=== PATIENT | male | born 1960 | race Caucasian/White ===

== ENCOUNTER 2016-06-13 16:11 | Emergency (ER) | payer MEDICARE, MEDICAID ==
--- NOTE | 2016-06-23 08:39 | ER ---
ADMIT: 06/13/2016 RM/LOC: ER [facility] MR#: [id number] [facility] [id number] [place], [place] [id number] SERGEI MIRANDA A [address] [facility] [address] [place] [address] Emergency Room Report SEX: M AGE: 56 : 1960 DATE: 06/13/2016 This is a 56-year-old gentleman who comes to the emergency department with a complaint of generalized not feeling well, could not quantify or qualify what he meant; he has not been feeling well for the past several days. He has not been eating or drinking because he just did not feel well. Physical exam reveals an unkempt 56-year-old gentleman, in no acute distress. See T-sheet for remainder of history and physical. CBC was significant for hemoglobin of 12.8, potassium 3.4, glucose 107. A1c was 5.7. The patient was discharged with a diagnosis of viral syndrome. Instructed to follow up this week with his primary doctor. Bull Vazquez MD/ mic JOB #: [id number] CC: Waldemar Worthy MD, Attending Physician UNKNOWN, Family Physician
[2016-09-18] MEDS ORDERED: GLUCOPHAGE-DPS500 MG PO (13:45)
[2016-09-18] MEDS ORDERED: DIOVAN HCT 1601 EACH PO (13:45)
[2016-09-18] MEDS ORDERED: JANUMET 50-5001 EACH PO (13:45)
[2016-09-18] MEDS ORDERED: TOPROL XL100 MG PO (13:46)
[2016-09-18] MEDS ORDERED: AMARYL2 MG PO (13:46)
[2016-09-18] MEDS ORDERED: LASIX DPS80 MG PO (13:46)
[2016-09-18] MEDS ORDERED: KLOR-CON M2020 ME1 PO (13:47)
[2016-09-18] MEDS ORDERED: MOBIC15 MG PO (13:47)
[2016-09-18] MEDS ORDERED: ULTRAM DPS50 MG PO (13:47)
[2016-09-18] MEDS ORDERED: RESTORIL DPS30 MG PO (13:47)
[2016-09-18] MEDS ORDERED: ZOLOFT100 MG PO (13:47)
[2016-09-18] MEDS ORDERED: ALDACTONE DPS25 MG PO (13:48)
[2016-09-18] MEDS ORDERED: AMBIEN DPS10 MG PO (13:48)
[2016-09-18] MEDS ORDERED: TRICOR48 MG PO (13:48)
[2016-09-18] MEDS ORDERED: ANTIVERT-DPS25 MG PO (13:48)
[2016-09-18] MEDS ORDERED: AMOXIL-DPS500 MG PO (13:49)
[2016-09-18] MEDS ORDERED: MAG-OX400 MG PO (13:49)
[2016-09-18] MEDS ORDERED: FLONASE 0.05% D16 GM NS (13:49)
[2016-09-18] MEDS ORDERED: TYLENOL DPS325 MG PO (13:49)
== END 2016-06-13 18:10 | disposition home or self-care (01) ==
LOC: ER 16:11
DX: B34.9 Viral infection, unspecified (principal); E11.9 Type 2 diabetes mellitus without complications; I10 Essential (primary) hypertension; F32.9 Major depressive disorder, single episode, unspecified